=== PATIENT | male | born 1975 | race Caucasian/White ===

== ENCOUNTER 2018-10-20 08:44 | Day surgery (SDC) | payer OTHER | END 2018-10-20 22:47 | disposition home or self-care (01) | LOC: MOI RAD 08:44 | PROC: BQ31YZZ Magnetic Resonance Imaging (MRI) of Left Hip using Other Contrast (ICD-10-PCS; principal; 2018-10-20) | DX: S73.192A Other sprain of left hip, initial encounter (principal) | CPT/HCPCS: 20610; 73722; 77002; A9577; Q9967 ==

== ENCOUNTER 2020-08-16 09:04 | Day surgery (SDC) | payer OTHER ==
[~2020-08-16] VITALS: Ht 185.4 cm; Wt 113.3 kg
[~2020-08-16 09:04] MED LIST: ESCITALOPRAM OX10 M1 PO
--- NOTE | 2020-08-16 14:00 | NUR ---
08/16/20 Brunilda Capps LATE ENTRY----DURING SEDATION LARGER DOSES OF PROPOFOL WERE NEEDED TO GET THE PATIENT TO SLEEP. THIS WAS DISCUSSED AND APPROVED BY DR HINKLE AT THE TIME OF SEDATION. PATIENT REMAINED STABLE THROUGHOUT PROCEDURE AND THERE WERE NO COMPLICATIONS WITH SEDATION
== END 2020-08-16 11:15 | disposition home or self-care (01) ==
LOC: ORSCSDS 09:04
PROVIDERS: Internal Medicine Gastroenterology
PROC: 0DBM8ZX Excision of Descending Colon, Via Natural or Artificial Opening Endoscopic, Diagnostic (ICD-10-PCS; principal; 2020-08-16 10:30)
DX: K57.30 Diverticulosis of large intestine without perforation or abscess without bleeding (principal); D12.4 Benign neoplasm of descending colon; K64.8 Other hemorrhoids
CPT/HCPCS: 88305; J2250; J2704; J7120

== ENCOUNTER 2024-10-10 19:10 | Emergency (ER) | payer OTHER ==
[~2024-10-10] VITALS: Ht 182.9 cm; Wt 108.9 kg
[2024-10-10 20:27] LABS: BASOPHILS ABSOLUTE AUTO 0.04 K/mm3 (0.00-0.23); BASOPHILS PERCENT AUTO 0 % (0-2); EOSINOPHILS ABSOLUTE AUTO 0.12 K/mm3 (0.00-0.68); EOSINOPHILS PERCENT AUTO 1 % (0-6); Hematocrit 41.1 % (37.0-53.0); Hemoglobin 13.9 g/dL (13.5-17.5); IMMATURE GRAN ABSOLUTE AUTO 0.04 K/mm3 (0.00-0.10); IMMATURE GRAN PERCENT AUTO 0 % (0-1); LYMPHOCYTES ABSOLUTE AUTO 2.05 K/mm3 (0.84-5.20); LYMPHOCYTES PERCENT AUTO 19 % (21-46); MONOCYTES ABSOLUTE AUTO 1.06 K/mm3 (0.16-1.47); MONOCYTES PERCENT AUTO 10 % (4-13); Mean Corpuscular HGB Conc 33.8 g/dL (31.5-36.5); Mean Corpuscular Volume 91 fL (80-100); NEUTROPHILS ABSOLUTE AUTO 7.30 K/mm3 (1.96-9.15); NEUTROPHILS PERCENT AUTO 69 % (41-73); NRBC ABSOLUTE 0.00 K/mm3 (0.00-0.02); NRBC Auto 0.0 /100 WBC (0.0-0.2); Platelet Count 273 K/mm3 (150-400); RDW Coefficient Variation 14.2 % (11.7-14.2); RDW Standard Deviation 47.8 fL (35.1-46.3)
[2024-10-10] MEDS ORDERED: Ketorolac Tromethamine 30mg Vial IV ONE (20:40)
[2024-10-10] MEDS ORDERED: NS 1,000 ML IV SCH (20:40)
[2024-10-10 20:49] LABS: Alanine Aminotransfer (ALT/SGP 44.0 U/L (12-78); Albumin, Blood 3.7 g/dL (3.4-5.0); Albumin/Globulin Ratio 1.2 (0.8-1.8); Anion Gap 5.0 mmol/L (3-11); Aspartate Aminotrans (AST/SGOT 23.0 U/L (12-37); Bilirubin, Total 0.5 mg/dL (0.1-1.0); Blood Urea Nitrogen 9.0 mg/dL (8-24); CO2, Blood 28.0 mmol/L (21-32); Calcium, Blood 8.7 mg/dL (8.5-10.1); Chloride, Blood 106.0 mmol/L (98-108); Creatinine, Blood 0.93 mg/dL (0.60-1.20); Globulin, Blood 3.0 g/dL (2.2-4.0); Glucose, Blood 91.0 mg/dL (70-99); Potassium, Blood 4.3 mmol/L (3.5-5.5); Sodium, Blood 135.0 mmol/L (136-145); Total Protein, Blood 6.7 g/dL (6.4-8.2)
[2024-10-10 21:32] LABS: Source, Urine Clean Catch
[2024-10-10 21:36] LABS: Bilirubin, Urine Neg (Neg); Glucose Qualitative, Urine Neg (Neg); Ketones, Urine Neg (Neg); Leukocyte Esterase, Urine Neg (Neg); Protein, Urine 1+ (Neg); Specific Gravity, Urine 1.005 (1.003-1.022); Urobilinogen, Urine NORM (Normal)
[2024-10-10 21:38] LABS: Color, Urine Pale Yellow (P-Yellow)
[2024-10-10] MEDS ORDERED: METR500 PO (23:01)
[2024-10-10] MEDS ORDERED: CIPR500 PO (23:01)
[2024-10-10 23:15] VITALS: BP 130/87
== END 2024-10-10 23:28 | disposition home or self-care (01) ==
LOC: ER 19:10
PROVIDERS: Student in an Organized Health Care Education/Training Program
DX: K57.32 Diverticulitis of large intestine without perforation or abscess without bleeding (principal); Z88.0 Allergy status to penicillin; Z79.899 Other long term (current) drug therapy
CPT/HCPCS: 74177; 80053; 83690; 85025; 96374-59; 99284-25; A9270; J1885; J7030; Q9967

== ENCOUNTER 2025-03-10 15:09 | Emergency (ER) | payer OTHER ==
[~2025-03-10] VITALS: Ht 185.4 cm; Wt 113.4 kg
[~2025-03-10 15:09] MED LIST changes: +ACET325 PO; +CIPR500 PO; +IBUP200 PO; +METR500 PO; +OXYC5 PO
[2025-03-10 16:07] LABS: BASOPHILS ABSOLUTE AUTO 0.05 K/mm3 (0.00-0.23); BASOPHILS PERCENT AUTO 0 % (0-2); EOSINOPHILS ABSOLUTE AUTO 0.06 K/mm3 (0.00-0.68); EOSINOPHILS PERCENT AUTO 1 % (0-6); Hematocrit 46.8 % (37.0-53.0); Hemoglobin 16.3 g/dL (13.5-17.5); IMMATURE GRAN ABSOLUTE AUTO 0.08 K/mm3 (0.00-0.10); IMMATURE GRAN PERCENT AUTO 1 % (0-1); LYMPHOCYTES ABSOLUTE AUTO 1.91 K/mm3 (0.84-5.20); LYMPHOCYTES PERCENT AUTO 15 % (21-46); MONOCYTES ABSOLUTE AUTO 1.09 K/mm3 (0.16-1.47); MONOCYTES PERCENT AUTO 8 % (4-13); Mean Corpuscular HGB Conc 34.8 g/dL (31.5-36.5); Mean Corpuscular Volume 89 fL (80-100); NEUTROPHILS ABSOLUTE AUTO 9.85 K/mm3 (1.96-9.15); NEUTROPHILS PERCENT AUTO 76 % (41-73); NRBC ABSOLUTE 0.00 K/mm3 (0.00-0.02); NRBC Auto 0.0 /100 WBC (0.0-0.2); Platelet Count 259 K/mm3 (150-400); RDW Coefficient Variation 13.0 % (11.7-14.2); RDW Standard Deviation 42.9 fL (35.1-46.3)
[2025-03-10 16:40] LABS: Alanine Aminotransfer (ALT/SGP 43.0 U/L (12-78); Albumin, Blood 4.1 g/dL (3.4-5.0); Albumin/Globulin Ratio 1.1 (0.8-1.8); Anion Gap 10.0 mmol/L (3-11); Aspartate Aminotrans (AST/SGOT 16.0 U/L (12-37); Bilirubin, Total 0.9 mg/dL (0.1-1.0); Blood Urea Nitrogen 11.0 mg/dL (8-24); CO2, Blood 25.0 mmol/L (21-32); Calcium, Blood 9.3 mg/dL (8.5-10.1); Chloride, Blood 104.0 mmol/L (98-108); Creatinine, Blood 0.98 mg/dL (0.60-1.20); Globulin, Blood 3.7 g/dL (2.2-4.0); Glucose, Blood 98.0 mg/dL (70-99); Potassium, Blood 4.0 mmol/L (3.5-5.5); Sodium, Blood 135.0 mmol/L (136-145); Total Protein, Blood 7.8 g/dL (6.4-8.2)
[2025-03-10 17:06] LABS: Source, Urine Clean Catch
[2025-03-10 17:12] LABS: Bilirubin, Urine Neg (Neg); Glucose Qualitative, Urine Neg (Neg); Ketones, Urine 2+ (Neg); Leukocyte Esterase, Urine Neg (Neg); Protein, Urine Neg (Neg); Specific Gravity, Urine 1.010 (1.003-1.022); Urobilinogen, Urine NORM (Normal)
[2025-03-10 17:27] LABS: Color, Urine Pale Yellow (P-Yellow)
[2025-03-10 18:03] VITALS: BP 131/98
[2025-03-10] MEDS ORDERED: CIPR500 PO (18:47)
[2025-03-10] MEDS ORDERED: METR500 PO (18:47)
== END 2025-03-10 19:09 | disposition home or self-care (01) ==
LOC: ER 15:09
PROVIDERS: Physician Assistant
DX: K57.32 Diverticulitis of large intestine without perforation or abscess without bleeding (principal); Z88.0 Allergy status to penicillin; Z79.899 Other long term (current) drug therapy
CPT/HCPCS: 74177; 80053; 81003; 85025; 99284-25; A9270; Q9967